=== PATIENT | female | born 1985 | race Caucasian/White ===

== ENCOUNTER 2017-01-14 16:40 | Emergency (ER) | payer SELFPAY ==
[2017-01-14 19:04] LABS: Hematocrit 37 % (35-47); Hemoglobin 12.5 g/dl (12.0-16.0); Mean Corpuscular HGB Conc 34 g/dl (31-36); Mean Corpuscular Hemoglobin 29 pg (27-31); Mean Corpuscular Volume 86 fL (80-97); Mean Platelet Volume 11 um3 (7.4-10.4); Red Blood Count 4.33 10^6/ul (4.0-5.4); Red Cell Distribution Width 13 % (10.5-15); White Blood Count 6.9 10^3/ul (3.5-10.8)
[2017-01-14 19:23] LABS: Albumin 4.5 g/dL (3.2-5.2); BUN/Creatinine Ratio 14.3 (8-20); C Reactive Protein 6.41 mg/L (< 5.00); Calcium 10.1 mg/dL (8.6-10.3); EGFR African American 141.7 (>60); EGFR Non-African American 110.2 (>60); Globulin 3.6 g/dL (2-4); Potassium 3.4 mmol/L (3.5-5.0); Total Bilirubin 0.3 mg/dL (0.2-1.0); Total Protein 8.1 g/dL (6.4-8.9)
[2017-01-14 20:11] LABS: TSH (Thyroid Stimulating Horm) 0.97 mcIU/mL (0.34-5.60)
--- NOTE | 2017-01-14 20:29 | RAD ---
INDICATION: Possible ectopic . COMPARISON: There are no prior studies available for comparison. TECHNIQUE: Multiple real-time transvaginal images of the pelvis were obtained. FINDINGS: This exam demonstrates an intrauterine gestational sac which is located eccentrically toward the right side of the fundus of the uterus. There appears to be myometrium surrounding this sac on all sides measuring up to 8 mm in thickness. Adjacent to the sac there is a fluid cavity most consistent with a subchorionic hematoma measuring 1.4 x 2.4 x 2.3 cm which may be the cause for the eccentric location of the sac. There is a pole and yolk sac present. The heart rate was 155 bpm. The crown-rump length measured 0.77 cm corresponding to an estimated gestational age of 6 weeks 5 days. The mean sac diameter measured 1.61 cm corresponding to an estimate gestational age of 6 weeks 3 days. The right ovary measured 3.7 x 2.4 x 2.3 cm. The left ovary measured 3.4 x 2.9 x 2.3 cm. There is vascular flow within both ovaries. There is a small complex cyst within the left ovary measuring 1.6 x 1.6 cm in size. No free intraperitoneal fluid is seen. IMPRESSION: THERE IS AN EARLY INTRAUTERINE WITH AN ESTIMATED GESTATIONAL AGE OF 6 WEEKS 5 DAYS BY CROWN-RUMP LENGTH. THERE IS AN ADJACENT FLUID COLLECTION MOST CONSISTENT WITH A SUBCHORIONIC HEMATOMA. THE GESTATIONAL SAC IS LOCATED ECCENTRICALLY IN THE UTERUS TOWARD THE RIGHT SIDE POSSIBLY FROM DISPLACEMENT BY THE SUBCHORIONIC HEMORRHAGE MUCH LESS LIKELY REPRESENTING AN INTERSTITIAL ECTOPIC . RECOMMEND CLINICAL CORRELATION AND A FOLLOW-UP TRANSVAGINAL ULTRASOUND IN 1 WEEKS TIME FOR FURTHER EVALUATION.
[2017-01-14 22:06] VITALS: BP 118/70
--- NOTE | 2017-01-14 22:20 | ED ---
Jeniffer Kwong Erika, scribed for Daryl Arcos MD on 01/14/17 at 2109 . GI/ HPI - HPI Summary HPI Summary: Patient is a 31-year-old female presenting to the ED for a transvaginal ultrasound. Patient reports that she was seen at the [facility] because she thought she was . They performed a non-diagnostic ultrasound , which showed that the gestational sac was more towards the right side. After she got home, they called her and recommended she come to the ED for an ultrasound. Patient denies any symptoms including vaginal bleeding or abdominal pain. [facility] 11/23/2016. A0 - both were vaginal deliveries. - History of Current Complaint Chief Complaint: EDOBProblems Time Seen by Provider: 01/14/17 19:42 Stated Complaint: R/O ECTOPIC Hx Obtained From: Patient, Family/Long Line Teamster - Onset/Duration: Started Hours Ago Timing: Constant Current Severity: None Pain Intensity: 0 Associated Signs and Symptoms: Positive: Negative. Negative: Abdominal Pain Additional Signs & Symptoms: Negative: Vaginal Bleeding Aggravating Factor(s): Nothing Alleviating Factor(s): Nothing - Allergy/Home Medications Allergies/Adverse Reactions: Allergies Allergy/AdvReac Type Severity Reaction Status Date / Time No Known Allergies Allergy Verified 01/14/17 16:59 PMH/Surg Hx/FS Hx/Imm Hx Endocrine/Hematology History: Denies: Hx Diabetes Cardiovascular History: Denies: Hx Hypertension - Surgical History Surgery Procedure, Year, and Place: appendectomy Infectious Disease History: No Infectious Disease History: Denies: Traveled Outside the [place] in Last 30 Days - Family History Known Family History: Positive: Diabetes, Other - multiple myeloma - Social History Lives: With Family Alcohol Use: None Hx Substance Use: No Substance Use Type: Reports: None Hx Tobacco Use: No Smoking Status (MU): Never Smoked Tobacco Review of Systems Negative: Fever Negative: Abdominal Pain Genitourinary: Other - Denies vaginal bleeding All Other Systems Reviewed And Are Negative: Yes Physical Exam Triage Information Reviewed: Yes Vital Signs On Initial Exam: Initial Vitals Temp Pulse Resp BP Pulse Ox 97.8 F 90 16 111/79 100 01/14/17 16:54 01/14/17 16:54 01/14/17 16:54 01/14/17 16:54 01/14/17 16:54 Vital Signs Reviewed: Yes Appearance: Positive: Well-Appearing, No Pain Distress Skin: Positive: Warm, Skin Color Reflects Adequate Perfusion, Dry Head/Face: Positive: Normal Head/Face Inspection Eyes: Positive: EOMI, MIYA ENT: Positive: Normal ENT inspection Neck: Positive: Supple, Nontender Respiratory/Lung Sounds: Positive: Clear to Auscultation, Breath Sounds Present Cardiovascular: Positive: RRR Abdomen Description: Positive: Nontender, Soft Bowel Sounds: Positive: Present Musculoskeletal: Positive: Normal, Strength/ROM Intact Neurological: Positive: Normal, Sensory/Motor Intact, Alert, Oriented to Person Place, Time Psychiatric: Positive: Affect/Mood Appropriate - Octavio Coma Scale Coma Scale Total: 15 Diagnostics - Vital Signs Vital Signs Temp Pulse Resp BP Pulse Ox 01/14/17 18:49 82 99 01/14/17 18:41 98.3 F 82 16 119/70 100 01/14/17 18:24 98.4 F 84 17 125/77 100 01/14/17 16:54 97.8 F 90 16 111/79 100 - Laboratory Lab Results: Lab Results 01/14/17 01/14/17 01/14/17 Range/Units 18:55 18:55 18:55 WBC 6.9 (3.5-10.8) 10^3/ul RBC 4.33 (4.0-5.4) 10^6/ul Hgb 12.5 (12.0-16.0) g/dl Hct 37 (35-47) % MCV 86 (80-97) fL MCH 29 (27-31) pg MCHC 34 (31-36) g/dl RDW 13 (10.5-15) % Plt Count 162 (150-450) 10^3/ul MPV 11 H (7.4-10.4) um3 Neut % (Auto) 67.1 (38-83) % Lymph % (Auto) 24.9 L (25-47) % [place] % (Auto) 7.1 (1-9) % Eos % (Auto) 0.5 (0-6) % Baso % (Auto) 0.4 (0-2) % Absolute Neuts (auto) 4.6 (1.5-7.7) 10^3/ul Absolute Lymphs (auto) 1.7 (1.0-4.8) 10^3/ul Absolute Monos (auto) 0.5 (0-0.8) 10^3/ul Absolute Eos (auto) 0 (0-0.6) 10^3/ul Absolute Basos (auto) 0 (0-0.2) 10^3/ul Absolute Nucleated RBC 0.01 10^3/ul Nucleated RBC % 0.2 INR (Anticoag Therapy) 0.98 (0.89-1.11) APTT 30.2 (26.0-36.3) seconds Sodium 135 (133-145) mmol/L Potassium 3.4 L (3.5-5.0) mmol/L Chloride 102 (101-111) mmol/L Carbon Dioxide 25 (22-32) mmol/L Anion Gap 8 (2-11) mmol/L BUN 9 (6-24) mg/dL Creatinine 0.63 (0.51-0.95) mg/dL Est GFR ( Amer) 141.7 (>60) Est GFR (Non-Af Amer) 110.2 (>60) BUN/Creatinine Ratio 14.3 (8-20) Glucose 93 (70-100) mg/dL Calcium 10.1 (8.6-10.3) mg/dL Total Bilirubin 0.30 (0.2-1.0) mg/dL AST 11 L (13-39) U/L ALT 9 (7-52) U/L Alkaline Phosphatase 61 (34-104) U/L C-Reactive Protein 6.41 H (< 5.00) mg/L Total Protein 8.1 (6.4-8.9) g/dL Albumin 4.5 (3.2-5.2) g/dL Globulin 3.6 (2-4) g/dL Albumin/Globulin Ratio 1.3 (1-3) TSH 0.97 (0.34-5.60) mcIU/mL Beta HCG, Quant 14633.00 mIU/mL Blood Type 01/14/17 Range/Units 18:55 WBC (3.5-10.8) 10^3/ul RBC (4.0-5.4) 10^6/ul Hgb (12.0-16.0) g/dl Hct (35-47) % MCV (80-97) fL MCH (27-31) pg MCHC (31-36) g/dl RDW (10.5-15) % Plt Count (150-450) 10^3/ul MPV (7.4-10.4) um3 Neut % (Auto) (38-83) % Lymph % (Auto) (25-47) % [place] % (Auto) (1-9) % Eos % (Auto) (0-6) % Baso % (Auto) (0-2) % Absolute Neuts (auto) (1.5-7.7) 10^3/ul Absolute Lymphs (auto) (1.0-4.8) 10^3/ul Absolute Monos (auto) (0-0.8) 10^3/ul Absolute Eos (auto) (0-0.6) 10^3/ul Absolute Basos (auto) (0-0.2) 10^3/ul Absolute Nucleated RBC 10^3/ul Nucleated RBC % INR (Anticoag Therapy) (0.89-1.11) APTT (26.0-36.3) seconds Sodium (133-145) mmol/L Potassium (3.5-5.0) mmol/L Chloride (101-111) mmol/L Carbon Dioxide (22-32) mmol/L Anion Gap (2-11) mmol/L BUN (6-24) mg/dL Creatinine (0.51-0.95) mg/dL Est GFR ( Amer) (>60) Est GFR (Non-Af Amer) (>60) BUN/Creatinine Ratio (8-20) Glucose (70-100) mg/dL Calcium (8.6-10.3) mg/dL Total Bilirubin (0.2-1.0) mg/dL AST (13-39) U/L ALT (7-52) U/L Alkaline Phosphatase (34-104) U/L C-Reactive Protein (< 5.00) mg/L Total Protein (6.4-8.9) g/dL Albumin (3.2-5.2) g/dL Globulin (2-4) g/dL Albumin/Globulin Ratio (1-3) TSH (0.34-5.60) mcIU/mL Beta HCG, Quant mIU/mL Blood Type O Positive Result Diagrams: 01/14/17 18:55 04/26/17 18:55 Lab Statement: Any lab studies that have been ordered have been reviewed, and results considered in the medical decision making process. - Ultrasound No standard instances Ultrasound Interpretation Completed By: Radiologist - Transvaginal US - IMPRESSION: THERE IS AN EARLY INTRAUTERINE WITH AN ESTIMATED GESTATIONAL AGE OF 6 WEEKS 5 DAYS BY CROWN-RUMP LENGTH. THERE IS AN ADJACENT FLUID COLLECTION MOST CONSISTENT WITH A SUBCHORIONIC HEMATOMA. THE GESTATIONAL SAC IS LOCATED ECCENTRICALLY IN THE UTERUS TOWARD THE RIGHT SIDE POSSIBLY FROM DISPLACEMENT BY THE SUBCHORIONIC HEMORRHAGE MUCH LESS LIKELY REPRESENTING AN INTERSTITIAL ECTOPIC . RECOMMEND CLINICAL CORRELATION AND A FOLLOW-UP TRANSVAGINAL ULTRASOUND IN 1 WEEKS TIME FOR FURTHER EVALUATION. Re-Evaluation - Re-Evaluation First Eval Re-Evaluation Time: 21:59 Comment: Discussed Dr. Scott's recommendations with patient GIGU Course/Dx - Course Course Of Treatment: NO CRITICAL CARE TIME Assessment/Plan: DISCUSSED RESULTS WITH PATIENT/FAMILY AND DR SCOTT. THE POSSIBILITY OF INTERSITIAL ECTOPIC PRGNANCY EXISTS. IT IS NOT CONSIDERED AN INTERSITIAL ECTOPIC AT THIS TIME. F/U WITH DR SCOTT TOMORROW. DISCHARGE HOME STABLE. PATIENT UNDERSTANDS TO RETURN TO THE ED WITH ANY CONCERNS. - Diagnoses Provider Diagnoses: - Physician Notifications Discussed Care Of Patient With: Dr. Scott (OB-Plug Assembler) at 21:12 - discussed case and ultrasound results. Discharge - Discharge Plan Condition: Stable Disposition: HOME Patient Education Materials: Ectopic (ED), (ED) Referrals: No Primary Care Phys,NOPCP [Primary Care Provider] - Stacy Scott MD [Medical Doctor] - Additional Instructions: FOLLOW UP WITH DR SCOTT, [facility]. CALL HIS OFFICE TOMORROW, 01/15/17 FOR FOLLOW UP FOR A REPEAT ULTRASOUND IN ONE WEEK. BECAUSE OF THE LOCATION OF THE [facility], THERE IS A POTENTIAL FOR AN INTERSTITIAL ECTOPIC . THE MUST BE FOLLOWED VERY CLOSELY BECAUSE OF THIS. RETURN TO THE EMERGENCY DEPARTMENT FOR ANY WORSENING OF YOUR CONDITION; PAIN, WEAKNESS, YOU FEEL ILL, YOU FEEL LIGHTHEADED, VAGINAL BLEEDING OR QUESTIONS OR CONCERNS. The documentation as recorded by the Jeniffer rizzo Erika accurately reflects the service I personally performed and the decisions made by me, Daryl Arcos MD.
== END 2017-01-14 22:06 | disposition home or self-care (01) ==
LOC: ED 16:40
DX: Z34.91 Encounter for supervision of normal pregnancy, unspecified, first trimester (principal)
CPT/HCPCS: 36415; 76817; 80053; 84443; 84702; 85025; 85610; 85730; 86140; 86900; 86901; 99283

== ENCOUNTER 2017-09-01 05:09 | Inpatient (IN) | payer BC ==
[2017-09-01 06:20] LABS: Hematocrit 35 % (35-47); Mean Corpuscular HGB Conc 34 g/dl (31-36); Mean Corpuscular Hemoglobin 31 pg (27-31); Mean Corpuscular Volume 90 fL (80-97); Mean Platelet Volume 11 um3 (7.4-10.4); Red Blood Count 3.92 10^6/ul (4.0-5.4); Red Cell Distribution Width 13 % (10.5-15); White Blood Count 7.5 10^3/ul (3.5-10.8)
[2017-09-01 06:30] LABS: Comments Flag Yes
[2017-09-01 06:31] LABS: Add Diff/Slide Review? Slide Review Added
[2017-09-01] MEDS ORDERED: OBEPIDURAL* 250 ML EPIDURAL ONE (06:45)
[2017-09-01] MEDS ORDERED: Famotidine TAB* 20 MG PO PRN (07:11)
[2017-09-01] MEDS ORDERED: EPHEDrine (Pressors)* 50 MG/ML VIAL IV PUSH PRN ×2 (07:11)
[2017-09-01] MEDS ORDERED: Sodium Citrate/Citric Acid* 15 ML UDC PO PRN (07:11)
[2017-09-01] MEDS ORDERED: Phenylephrine IV* 40 MCG/ML 10 ML SYRINGE IV PUSH PRN ×2 (07:11)
[2017-09-01] MEDS ORDERED: OBEPIDURAL* 250 ML EPIDURAL SCH (08:00)
[2017-09-01] MEDS ORDERED: Misoprostol TAB* 200 MCG PR ONE (10:10)
[2017-09-01] MEDS ORDERED: Dibucaine 1% 28.35 GM TUBE PR PRN (10:10)
[2017-09-01] MEDS ORDERED: Glycerin ADULT SUPP PR PRN (10:10)
[2017-09-01] MEDS ORDERED: Witch Hazel PAD* JAR TOPICAL PRN (10:10)
[2017-09-01] MEDS ORDERED: Oxytocin in LR* 20 UNITS/1,000 ML BAG IVPB SCH (11:00)
[2017-09-01] MEDS ORDERED: Simethicone TAB* 80 MG TAB.CHEW PO SCH (12:30)
[2017-09-01] MEDS: Ibuprofen TAB* 600 MG PO PRN ×2 (12:50→20:10)
[2017-09-01] MEDS: Docusate CAP* 100 MG PO SCH ×2 (15:01→21:07)
[2017-09-01 15:50] LABS: Hematocrit 31 % (35-47); Hemoglobin 10.3 g/dl (12.0-16.0)
[2017-09-01] MEDS: Acetaminophen TAB* 325 MG PO PRN ×2 (17:09→21:58)
[2017-09-02] MEDS: Ibuprofen TAB* 600 MG PO PRN ×4 (03:03→20:54)
[2017-09-02 07:25] VITALS: BP 111/70
[2017-09-02 07:26] LABS: Hematocrit 28 % (35-47); Hemoglobin 9.7 g/dl (12.0-16.0); Mean Corpuscular HGB Conc 34 g/dl (31-36); Mean Corpuscular Hemoglobin 31 pg (27-31); Mean Corpuscular Volume 90 fL (80-97); Mean Platelet Volume 12 um3 (7.4-10.4); Red Blood Count 3.14 10^6/ul (4.0-5.4); Red Cell Distribution Width 14 % (10.5-15); White Blood Count 10.5 10^3/ul (3.5-10.8)
[2017-09-02] MEDS: Docusate CAP* 100 MG PO SCH ×3 (09:30→20:54)
[2017-09-02] MEDS: Ferrous Gluconate TAB* 324 MG TAB PO SCH ×2 (09:30→20:54)
[2017-09-04 14:41] LABS: Varicella IgG Antibody Index <0.2; Varicella-Zoster IgG Antibody Negative
== END 2017-09-02 19:30 | disposition home or self-care (01) | DRG 560 ==
LOC: MCHOBOUT 05:09 → MCHOB 05:33
PROVIDERS: ADMIT Midwife; ATTEND Midwife
PROC: 10E0XZZ Delivery of Products of Conception, External Approach (ICD-10-PCS; principal; 2017-09-01)
PROC: 0HQ9XZZ Repair Perineum Skin, External Approach (ICD-10-PCS; 2017-09-01)
DX: O48.0 Post-term pregnancy (principal); O43.123 Velamentous insertion of umbilical cord, third trimester; O70.0 First degree perineal laceration during delivery; Z3A.40 40 weeks gestation of pregnancy; Z37.0 Single live birth
CPT/HCPCS: 36415; 85014; 85018; 85025; 86787; 86850; 86900; 86901; A9270-GY

== ENCOUNTER 2018-08-10 09:00 | Emergency (ER) | payer BC ==
--- OUTSIDE RECORDS SUMMARY | 2018-08-10 09:08 | XMS REPORT | Continuity of Care Document ---
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 Payers Type Date Identification Numbers Payment Provider Subscriber Effective: Policy Number: [employer] CHARLINE/BS Alexandra Rodriguez 2017 [id number] [facility] PayID: [id number] [address] [address] [place] [address] Advance Directives Description No Information Available Problems Date Description Provider Status Onset: 12/28/2017 IUD contraception Kisha Rucker CNM Active Onset: 06/24/2017 Multigravida Kisha Rucker CNM Resolved Resolved: 12/28/2017 Family History Date Family Member(s) Problem(s) Comments Father A&W Mother Diabetes Mother multiple myloma Children 3 First Son A&W First Daughter A&W Second Daughter Congenital Nasal Pyriform Expectant management for now Apparatus Stenosis (may require surgery at some point) Siblings 4 First Brother A&W Second Brother Glucose 6 phosphate dehydrogenase deficiency First Sister A&W Second Sister A&W Paternal Grandfather due to Unknown Causes () Paternal Grandmother due to Unknown Causes () Maternal Grandfather due to Unknown Causes () Maternal Grandmother Diabetes Social History Type Date Description Comments Sex Unknown Education Highest level completed, Doctorate Marital Status Lives With Spouse Lives With Son Lives 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 Daughters 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 Tobacco Use Start: Unknown Never Smoked Cigarettes ETOH Use Denies alcohol use Recreational Drug Use Denies Drug Use Tobacco Use Start: Unknown Patient has never smoked Smoking Status Reviewed: 02/04/18 Patient has never smoked Exercise Type/Frequency Does not exercise Seat Belt/Car Seat Always uses seat belt Currently Active Patient is currently sexually active Contraceptive Methods Paragard IUD STD's No STD History Allergies, Adverse Reactions, Alerts Description No Known Drug Allergies Medications Medication Date Status Form Strength Qnty SIG Indications Ordering Provider Paragard Active IUD T380a placed Mahrie Intrauterine 018 12/28/2017 KIRSTIN Rucker Copper Contraceptive T380a Folic Acid Active Unknown 000 Flagyl Hx Tablets 500mg 14tabs one Nevin 018 - tablet Minoo, by LM 018 mouth, twice a day x 7 days Provera Hx Tablets 10mg 10tabs take one Nevin 018 - tablet Minoo, by mouth LM 018 for 10 days. Clotrimazole Hx Cream 1% 15gm apply to N64.51 Richard Murray 017 - area Gelber, twice a M.D. 018 day x14 days Ferrous Hx Tablets 324(37.5Fe) 30tabs 1 by Mahrie Gluconate 017 - mg mouth KIRSTIN Rucker every 018 other day Promethazine HCL Hx Tablets 25mg 30tabs take one Desirae 017 - tablet Avery, by mouth CNM 018 every 6 hours as needed for nausea Ranitidine HCL Hx Tablets 150mg 30tabs tab 1 by Desirae 017 - mouth Avery, twice a CNM 018 day as needed for acid reflux Medications Administered in Office Medication Date Status Form Strength Qnty SIG Indications Ordering Provider PT SCRN Tbco Administered Injection Mahrie Id as Non User 018 KIRSTIN Rucker PT SCRN Tbco Administered Injection Nevin Id as Non User 018 MICHELLE Hennessy Immunizations CPT Code Status Date Vaccine Lot # [id number] Given 06/24/2017 Tetnus, Diptheria Toxoids And Acellular Pertussis, [id number] PT > 7Yrs Old 04806 Given 06/24/2017 Influenza Vaccine Quadrivalent Preser/Antibiotic [id number] Free Im Use Vital Signs Date Vital Result Comment 08/09/2018 1:19pm BP Systolic 112 mmHg BP Diastolic 76 mmHg Body Temperature 98.1 F Height 65.0 inches 5'5" Weight 163.00 lb BMI (Body Mass Index) 27.1 kg/m2 3 Parity 3 02/04/2018 1:37pm BP Systolic 102 mmHg BP Diastolic 64 mmHg Height 65.0 inches 5'5" Weight 156.00 lb BMI (Body Mass Index) 26.0 kg/m2 Last Menstrual Period 1200863 3 Parity 3 01/19/2018 1:05pm BP Systolic 118 mmHg BP Diastolic 64 mmHg Height 65.0 inches 5'5" Weight 161.00 lb BMI (Body Mass Index) 26.8 kg/m2 Last Menstrual Period 9419952 3 Parity 3 12/28/2017 1:32pm BP Systolic 106 mmHg BP Diastolic 60 mmHg Height 65.0 inches 5'5" Weight 165.00 lb BMI (Body Mass Index) 27.5 kg/m2 Last Menstrual Period 4814913 3 Parity 3 11/11/2017 1:24pm BP Systolic 104 mmHg BP Diastolic 62 mmHg Height 65.0 inches 5'5" Weight 158.00 lb BMI (Body Mass Index) 26.3 kg/m2 Last Menstrual Period 2136624 3 Parity 3 02/11/2017 1:38pm BP Systolic 108 mmHg BP Diastolic 64 mmHg Height 65.0 inches 5'5" Weight 151.00 lb BMI (Body Mass Index) 25.1 kg/m2 Last Menstrual Period 0494939 3 Parity 2 01/21/2017 9:24am BP Systolic 120 mmHg BP Diastolic 72 mmHg Height 65.0 inches 5'5" Weight 150.00 lb BMI (Body Mass Index) 25.0 kg/m2 Last Menstrual Period 6930384 3 Parity 2 01/14/2017 12:00am BP Systolic 118 mmHg BP Diastolic 70 mmHg Body Temperature 98.3 F Heart Rate 82 /min Respiratory Rate 16 /min Height 64.96 inches Weight 147.69 lb BMI (Body Mass Index) 24.6 kg/m2 Results Test Date Facility Test Result H/L Range Note Laboratory test 08/09/2018 [facility] Gardnerella/Yeas <pending > [place] [address] t: Vaginal Dna [phone] Laboratory test 01/19/2018 [facility] Culture Genital SEE RESULT [address] [place] [address] & Sensitivity BELOW [phone] CBC With No Diff 01/19/2018 [facility] White Blood 5.0 10^3/uL 3.5-10.8 [place] [address] Count [phone] Red Blood Count 4.42 10^6/uL 4.0-5.4 Hemoglobin 13.0 g/dL 12.0-16.0 Hematocrit 38 % 35-47 Mean Corpuscular Volume 86 fL 80-97 Mean Corpuscular Hemoglobin 29 pg 27-31 Mean Corpuscular HGB Conc 34 g/dL 31-36 Red Cell Distribution Width 14 % 10.5-15 Platelet Count 156 10^3/uL 150-450 Mean Platelet Volume 11.1 um3 High 7.4-10.4 Laboratory test 08/04/2017 [facility] Group B Strep SEE RESULT 2, 3 [place] [address] Culture Screen BELOW [phone] Laboratory test 2017 [facility] Glucose 1 HR 123 mg/dL 70-16 4 [place] [address] Post Prandial 0 [phone] CBC With No Diff 2017 [facility] White Blood 6.5 10^3/uL 3.5-1 [place] [address] Count 0.8 [phone] Red Blood Count 3.50 10^6/uL Low 4.0-5.4 Hemoglobin 10.7 g/dL Low 12.0-16.0 Hematocrit 32 % Low 35-47 Mean Corpuscular Volume 91 fL 80-97 Mean Corpuscular Hemoglobin 31 pg 27-31 Mean Corpuscular HGB Conc 34 g/dL 31-36 Red Cell Distribution Width 14 % 10.5-15 Platelet Count 112 10^3/uL Low 150-450 Mean Platelet Volume 12 um3 High 7.4-10.4 Sequential Integreated SCRN 2 PR 03/12/2017 [facility] Interpretation SEE BELOW 5 Risk For Ontd <1:5000 Age Risk Down Syndrome 1:560 JAY Down Syndrome Risk 1:4800 <1:270 JAY Trisomy 18 Risk <1:5000 <1:100 Calculated Gestational Age 15.3 6 Afp,Serum 19.4 ng/mL Afp Mom 0.66 7 HCG,Serum 47.0 IU/mL HCG Mom 1.03 Estriol,Free 0.48 ng/mL Estriol Mom 0.69 Inhibin A,Dimeric 202 pg/mL Inhibin A Mom 1.13 Lalita-A 604.4 ng/mL 8 Lalita-A Mom 1.01 NT Mom 0.94 9 Referring Physician Name JANAE/BELEN OKEEFE <SEE NOTE> 10 Referring Physician Referring Physician BELEN BlackwoodORA 13 <SEE NOTE> 11 Specimen # From Part 1 [id number] Date Of 1985 Collection Date 03/12/2017 Maternal Weight 151 lbs Est'd Date Of Delivery 08/30/2017 Nuchal Translucency 1.1 mm [place] Rump Length 46 mm Ultrasound Date 02/11/2017 Nasal Bone NOT GIVEN Mother's Ethnic Origin OTHER Insulin Depend Diabetic N Repeat Specimen N Number Of Fetuses 1 HX Of Neural Tube Defects N Twin B Nasal Bone NG 12 GC/Chlamydia Dna 02/20/2017 [facility] Chlamydia [place] [address] trachomatis Rna [phone] Neisseria gonorrhoeae (GC) Rna Negative Negative Urine Culture And 02/11/2017 [facility] Urine SEE RESULT 13 [place] [address] Culture BELOW [phone] HIV 1/2 Ag & AB 02/11/2017 [facility] HIV-1/-2 Negative Negative 14 [place] [address] Screen, S [phone] Lead 02/11/2017 [facility] Lead <1.0 g/dL 0.0-4.9 15 [place] [address] [phone] Type And Screen 02/11/2017 [facility] [place] [address] Blood Type [phone] Antibody Screen NEGATIVE CBC With No 02/11/2017 [facility] White Blood 6.8 10^3/uL 3.5 -10.8 [place] [address] Count [phone] Red Blood Count 4.18 10^6/uL 4.0-5.4 Hemoglobin 12.2 g/dL 12.0-16.0 Hematocrit 38 % 35-47 Mean Corpuscular Volume 90 fL 80-97 Mean Corpuscular Hemoglobin 29 pg 27-31 Mean Corpuscular HGB Conc 33 g/dL 31-36 Red Cell Distribution Width 14 % 10.5-15 Platelet Count 152 10^3/uL 150-450 Mean Platelet Volume 13 um3 High 7.4-10.4 PNL No 02/11/2017 [facility] Rubella Screen Immune IU/ mL Immune 16 [place] [address] [phone] Hemoglobin A1c 5.0 % Less than 6.0 17 Hepatitis B Surface Ag Nonreactive Nonreactive 18 Syphillis Igg W/Reflex RPR Nonreactive Nonreactive 19 Sequential Integrated SCRN 1 [place] 02/11/2017 [facility] Interpretation SEE BELOW 20 Age Risk Down Syndrome 1:420 JAY Down Syndrome Risk IN PROCESS <1:50 JAY Trisomy 18 Risk IN PROCESS <1:100 Calculated Gestational Age 11.1 21 Lalita-A 604.4 ng/mL 22 Lalita-A Mom 1.01 HCG,Serum 99.1 IU/mL HCG Mom 0.84 NT Mom 0.94 23 Referring Physician Name JANAE 24 Referring Physician 25 Referring Physician Npi [id number] Date Of 1985 27 Collection Date 02/11/2017 28 Maternal Weight 151 lbs 29 Est'd Date Of Delivery 08/30/2017 30 LAZARUS Determined By U 31 Mother's Ethnic Origin OTHER 32 Number Of Fetuses 1 33 Insulin Depend Diabetic N 34 Repeat Specimen N 35 HX Of Neural Tube Defects N 36 Prev Down Synd N 37 Donor Egg N 38 Donor Age:Egg Retrieval NOT GIVEN 39 Ultrasound Date 02/11/2017 40 Betting Agency Manager's Name VICTORINO 41 NTQR Betting Agency Manager Id# [id number] NTQR Location Id# [id number] NTQR Reading Phys Id# [id number] FMF Betting Agency Manager Id# NOT GIVEN 45 [place] Rump Length 46 mm 46 Nuchal Translucency 1.1 mm 47 Nasal Bone NOT GIVEN 48 If Twins NOT GIVEN 49 Twin B CRL NG mm 50 Twin B NT NG mm 51 Twin B Nasal Bone NG 52 Laboratory Studies 01/14/2017 N2N/CCD Import Absolute Basophils 0 10^3/ul 0-0.2 (auto) Absolute Eosinophils (auto) 0 10^3/ul 0-0.6 Absolute Lymphocytes (auto) 1.7 10^3/ul 1.0-4.8 Absolute Monocytes (auto) 0.5 10^3/ul 0-0.8 Absolute Neutrophils (auto) 4.6 10^3/ul 1.5-7.7 Activated Partial Thromboplast Time 30.2 seconds 26.0-36.3 Alanine Aminotransferase (Alt/SGPT) 9 U/L 7-52 Albumin 4.5 g/dL 3.2-5.2 Albumin/Globulin Ratio 1.3 1-3 Alkaline Phosphatase 61 U/L 34-104 Anion Gap 8 mmol/L 2-11 Aspartate Amino Transf (Ast/Sgot) 11 U/L Low 13-39 BUN/Creatinine Ratio 14.3 8-20 Basophils (%) (Auto) 0.4 % 0-2 Beta HCG, Quantitative 90910.00 mIU/mL Blood Urea Nitrogen 9 mg/dL 6-24 C-Reactive Protein 6.41 mg/L High 0-5.00 Calcium Level 10.1 mg/dL 8.6-10.3 Carbon Dioxide Level 25 mmol/L 22-32 Chloride Level 102 mmol/L 101-111 Creatinine 0.63 mg/dL 0.51-0.95 Eosinophils (%) (Auto) 0.5 % 0-6 Estimated GFR () 141.7 Estimated GFR (Non- 110.2 Globulin 3.6 g/dL 2-4 Glucose Level 93 mg/dL 70-100 Hematocrit 37 % 35-47 Hemoglobin 12.5 g/dL 12.0-16.0 International Ratio (Anticoag Ther) 0.98 0.89-1.11 Lymphocytes (%) (Auto) 24.9 % Low 25-47 Mean Corpuscular Hemoglobin 29 pg 27-31 Mean Corpuscular Hemoglobin Concent 34 g/dL 31-36 Mean Corpuscular Volume 86 fL 80-97 Mean Platelet Volume 11 um3 High 7.4-10.4 Monocytes (%) (Auto) 7.1 % 1-9 Neutrophils (%) (Auto) 67.1 % 38-83 Nucleated RBC Absolute Count (auto) 0.01 10^3/ul Nucleated Red Blood Cells % 0.2 Platelet Count 162 10^3/ul 150-450 Potassium Level 3.4 mmol/L Low 3.5-5.0 Red Blood Count 4.33 10^6/ul 4.0-5.4 Red Cell Distribution Width 13 % 10.5-15 Sodium Level 135 mmol/L 133-145 Thyroid Stimulating Hormone (TSH) 0.97 mcIU/mL 0.34-5.60 Total Bilirubin 0.30 mg/dL 0.2-1.0 Total Protein 8.1 g/dL 6.4-8.9 White Blood Count 6.9 10^3/ul 3.5-10.8 1 SEE RESULT BELOW Name: ALEXANDRA KINNEY : [address]: Nevin Hennessy CM Acct: [id number] Unit: [id number] AGE: 32 Location: [facility] Re01/19/18 SEX: F Status: REG REF SPEC: [id number] ANJELICA: 01/19/18-1418 [facility] DR: Nevin Hennessy CM REQ: [id number] RECD: 01/19/18 STATUS: COMP _ SOURCE: VAGINAL SPDESC: ORDERED: Genital Culture COMMENTS: [id number] Procedure Result Reported Site Genital Culture Final 01/22/18- 1324 ML Organism 1 SHAMIR VAGINALIS-PRESUMPTIVE Quantity 2+ Organism 2 NORMAL YOKO Quantity 1+ * ML - Main Lab . END OF REPORT DEPARTMENT OF PATHOLOGY, [address] [place] [address] Anselmo Mathias M.D. Director [facility] # [id number] 2 [id number] SEE RESULT BELOW Name: ALEXANDRA KINNEY : [address]: Suzi Jean Baptiste MD Acct: [id number] Unit: [id number] AGE: 32 Location: [facility] Re08/04/17 SEX: F Status: REG REF SPEC: [id number] ANJELICA: 08/04/17 [facility] DR: Suzi Jean Baptiste MD REQ: [id number] RECD: 08/04/17 STATUS: COMP _ SOURCE: CER/VAG/RE SPDESC: ORDERED: Grp B Strp Scrn COMMENTS: [id number] QUERIES: Is Patient Penicillin Allergic? N Is patient penicillin allergic and/or sensitivities needed? N Provider Requisition # C77#[id number] Procedure Result Reported Site Group B Strep Culture Screen Final 08/06/17- 1208 ML Group B Strep Screen Negative * ML - MAIN LAB ([facility]) . END OF REPORT * ML=Testing performed at Main Lab DEPARTMENT OF PATHOLOGY, [address] [place] [address] Anselmo Mathias M.D. Director [facility] # [id number] 4 [id number] SCREEN NEGATIVE FOR OPEN NTD, DOWN SYNDROME AND TRISOMY 18. NT WAS USED IN THE RISK CALCULATIONS. 6 [place] rump length (CRL) was used to calculate gestational age. LAZARUS, if provided, was not used for gestational age dating. 7 Reference Range: <2.50 IDD <1.90 TWINS <4.00 TWINS IDD <3.50 TRIPLETS <4.50 8 This test was performed using a kit that has not been cleared or approved by the FDA. The analytical performance characteristics of this test have been determined by [facility]. This test should not be used for diagnosis without confirmation by other medically established means. 9 The Sequential Integrated Screen combines LALITA-A and hCG with or without a nuchal translucency measurement in the first trimester with AFP, unconjugated estriol, intact hCG and Inhibin A in the second trimester. This provides a useful screening test for detection of open neural tube defects, Down syndrome and Trisomy 18. It should be noted that normal results can never guarantee the of a normal baby and that 2 to 3 percent of newborns have some type of physical or mental defect, many of which are undetectable through any known diagnostic technique. Interpretation reviewed by: Carmenza Helms, Ph.D., [facility]. This is a screening test, not a diagnostic test. This risk assessment is based on demographic data provided by the ordering physician. Please notify the laboratory promptly if any data are incorrect. If you have questions concerning this report: For clinical consultation, call ; For technical questions, call ext [phone]; For recalculations, fax to [phone]. 10 JANAE/OVIDIO OKEEFE 11 OVIDIO OKEEFE [id number] 12 For additional information, please refer to http://education.Playrcart.[email or web address] Engine/faq/FAQ94 (This link is provided for informational/educational purposes only.) 13 SEE RESULT BELOW Name: ALEXANDRA RODRIGUEZ : [address]: Manny Choi [facility] Acct: [id number] Unit: [id number] AGE: 31 Location: [facility] Re02/11/17 SEX: F Status: REG REF SPEC: [id number] ANJELICA: 02/11/17-[address]: Manny Choi [facility] REQ: [id number] RECD: 02/11/17 STATUS: COMP _ SOURCE: URINE SPDESC: ORDERED: Urine Culture COMMENTS: [id number] Procedure Result Reported Site Urine Culture Final 02/13/17- 923 ML No Growth (<1,000 CFU/mL) * ML - MAIN LAB ([facility]) . END OF REPORT * ML=Testing performed at Main Lab DEPARTMENT OF PATHOLOGY, [address] [place] [address] nAselmo Mathias M.D. Director [facility] # [id number] 14 Negative result does not rule out HIV infection. If acute HIV infection is suspected in a high-risk individual, submit plasma specimen for HIV-1 RNA quantification test (HIVDQ) and/or HIV-2 DNA/RNA test (FHV2Q). Test Performed by: [address] [address] 15 ADDITIONAL INFORMATION Testing performed by Inductively Coupled Plasma-Mass Spectrometry (ICP-MS). This test was developed and its performance characteristics determined by [facility] in a manner consistent with CLIA requirements. This test has not been cleared or approved by the U.S. Food and Drug Administration. 16 [id number] 17 Therapeutic target for the treatment of diabetes Mellitus patients is <7% HBA1C, and in selective patients <6.0%.Please refer to [place] [employer] Diabetic care guidelines for further information. 18 [id number] 19 Warning: A positive result is not useful for establishing a diagnosis of syphilis. In most situations, such a result may reflect a prior treated infection; a negative result can exclude a diagnosis of syphilis except for incubating or early primary disease. 20 This patient's risk does not exceed the first trimester cut-off for Down syndrome or trisomy 18. The integrated screen calculation is awaiting the second trimester sample. NT WAS USED IN THE RISK CALCULATIONS. Thank you for submitting this patient's Part 1 specimen. These first trimester values will be incorporated with the second trimester values as part of the integrated testing process. Please submit the Part 2 specimen between 03/10/2017-05/04/2017 (15.0 and 22.9 weeks gestation) with 03/10/2017-03/23/2017 (15.0 - 16.9 weeks gestation) being optimal. When submitting Part 2, please include the following Specimen # from Part 1: [id number] 21 [place] rump length (CRL) was used to calculate gestational age. LAZARUS, if provided, was not used for gestational age dating. 22 This test was performed using a kit that has not been cleared or approved by the FDA. The analytical performance characteristics of this test have been determined by [facility]. This test should not be used for diagnosis without confirmation by other medically established means. 23 Interpretation reviewed by: Carmenza Helms, Ph.D., [facility]. This is a screening test, not a diagnostic test. This risk assessment is based on demographic data provided by the ordering physician. Please notify the laboratory promptly if any data are incorrect. If you have questions concerning this report: For clinical consultation, call ; For technical questions, call ext [phone]; For recalculations, fax to . For additional information, please refer to http://AppSlingr.Playrcart.Compass Engine/faq/FAQ89 (This link is being provided for informational/educational purposes only.) 24 For additional information, please refer to http://AppSlingr.Playrcart.Compass Engine/faq/FAQ89 (This link is being provided for informational/educational purposes only.) 25 For additional information, please refer to http://AppSlingr.Playrcart.Compass Engine/faq/FAQ89 (This link is being provided for informational/educational purposes only.) 26 For additional information, please refer to http://AppSlingr.Playrcart.Compass Engine/faq/FAQ89 (This link is being provided for informational/educational purposes only.) 27 For additional information, please refer to http://AppSlingr.Playrcart.Compass Engine/faq/FAQ89 (This link is being provided for informational/educational purposes only.) 28 For additional information, please refer to http://Stream Media/faq/FAQ89 (This link is being provided for informational/educational purposes only.) 29 For additional information, please refer to http://Stream Media/faq/FAQ89 (This link is being provided for informational/educational purposes only.) 30 For additional information, please refer to http://Stream Media/faq/FAQ89 (This link is being provided for informational/educational purposes only.) 31 For additional information, please refer to http://Stream Media/faq/FAQ89 (This link is being provided for informational/educational purposes only.) 32 [place] For additional information, please refer to http://Stream Media/faq/FAQ89 (This link is being provided for informational/educational purposes only.) 33 For additional information, please refer to http://Stream Media/faq/FAQ89 (This link is being provided for informational/educational purposes only.) 34 For additional information, please refer to http://Stream Media/faq/FAQ89 (This link is being provided for informational/educational purposes only.) 35 For additional information, please refer to http://Stream Media/faq/FAQ89 (This link is being provided for informational/educational purposes only.) 36 For additional information, please refer to http://Stream Media/faq/FAQ89 (This link is being provided for informational/educational purposes only.) 37 For additional information, please refer to http://Stream Media/faq/FAQ89 (This link is being provided for informational/educational purposes only.) 38 For additional information, please refer to http://Stream Media/faq/FAQ89 (This link is being provided for informational/educational purposes only.) 39 For additional information, please refer to http://Stream Media/faq/FAQ89 (This link is being provided for informational/educational purposes only.) 40 For additional information, please refer to http://Stream Media/faq/FAQ89 (This link is being provided for informational/educational purposes only.) 41 For additional information, please refer to Yanado://Stream Media/faq/FAQ89 (This link is being provided for informational/educational purposes only.) 42 For additional information, please refer to http://Stream Media/faq/FAQ89 (This link is being provided for informational/educational purposes only.) 43 For additional information, please refer to http://Stream Media/faq/FAQ89 (This link is being provided for informational/educational purposes only.) 44 For additional information, please refer to http://Stream Media/faq/FAQ89 (This link is being provided for informational/educational purposes only.) 45 For additional information, please refer to http://Stream Media/faq/FAQ89 (This link is being provided for informational/educational purposes only.) 46 For additional information, please refer to http://Stream Media/faq/FAQ89 (This link is being provided for informational/educational purposes only.) 47 For additional information, please refer to http://Stream Media/faq/FAQ89 (This link is being provided for informational/educational purposes only.) 48 For additional information, please refer to http://Stream Media/faq/FAQ89 (This link is being provided for informational/educational purposes only.) 49 For additional information, please refer to http://Stream Media/faq/FAQ89 (This link is being provided for informational/educational purposes only.) 50 For additional information, please refer to http://Stream Media/faq/FAQ89 (This link is being provided for informational/educational purposes only.) 51 For additional information, please refer to http://Stream Media/faq/FAQ89 (This link is being provided for informational/educational purposes only.) 52 For additional information, please refer to http://education.365Scores/faq/FAQ89 (This link is being provided for informational/educational purposes only.) Procedures Date Code Description Status 01/19/2018 02582 Echography Transvaginal Completed 12/28/2017 34148 Insert Intrauterine Device Completed 09/01/2017 33266 Obstetric Care Routine Completed 07/17/2017 14909 Biophysical Profile Without Non Stress Test Completed 07/17/2017 86895 Echography Uterus Follow-Up Or Repeat Completed 05/06/2017 86707 Echography Uterus Limited Completed 04/08/2017 86730 Echography Uterus Complete Completed 02/11/2017 12760 Nuchal Translucency Ultrasound /First Completed Gestation 01/21/2017 26629 OB Ultrasound First Trimester Completed 01/20/2016 [id number] Mammogram Completed Encounters Type Date Location Provider Dx Diagnosis Office Visit 08/09/2018 [facility] Manny Choi CNM N39.0 Urinary tract 1:40p infection, site not specified N93.9 Abnormal uterine and vaginal bleeding, unspecified Office Visit 02/04/2018 1:40p [facility] Office Kisha Rucker Z30.431 Encounter for ALEXM routine checking of intrauterine contracep dev Office Visit 01/19/2018 1:00p [facility] Nevin Z30.431 Encounter for MICHELLE Hennessy routine checking of intrauterine contracep dev Office Visit 07/15/2017 11:20a [facility] Richard Murray N64.51 Induration of Tiana Norman breast Office Visit 01/21/2017 9:00a [facility] Kate Ho, O26.91 related ANP-C conditions, unspecified, first trimester Plan of Treatment 08/09/2018 - Manny Choi CNMN39.0 Urinary tract infection, site not specifiedComments:Will start abx based on micro and follow up based on [id number] Abnormal uterine and vaginal bleeding, unspecifiedComments:As discussed, we will check for infections and treat if found. I'm unsure as to the cause of your daily spotting. An option may be to remove IUD and reinsert later or consider a course of hormones to suppress cycle for a few months. Call for either option.
[2018-08-10] MEDS ORDERED: Ondansetron ODT TAB* 4 MG PO ONE (09:51)
[2018-08-10] MEDS: Ibuprofen TAB* 600 MG PO ONE ×2 (09:58→10:05)
--- NOTE | 2018-08-10 10:30 | UC ---
Complaint Female HPI - HPI Summary HPI Summary: PATIENT WITH 2 DAYS OF DYSURIA AND URINARY FREQUENCY. SAW HER [employer] YESTERDAY AND WAS PRESCRIBED MACROBID. TOOK ONE DOSE THIS MORNING BUT TODAY NOTED LOWER ABDOMINAL PAIN AND RIGHT FLANK PAIN WELL NAUSEA. CAME HERE FOR REEVALUATION DUE TO WORSENING SYMPTOMS. - History Of Current Complaint Chief Complaint: UCGU Stated Complaint: LOWER BACK PAIN Time Seen by Provider: 08/10/18 09:11 Hx Obtained From: Patient, Family/Project Management - Hx Last Menstrual Period: 07/16/18 Onset/Duration: Gradual Onset, Lasting Days, Still Present Timing: Constant Severity Initially: Moderate Severity Currently: Moderate Pain Intensity: 8 Pain Scale Used: 0-10 Numeric Character: Sharp, Burning Aggravating Factor(s): Nothing Alleviating Factor(s): Nothing Associated Signs And Symptoms: Positive: Back Pain, Nausea. Negative: Fever - Allergies/Home Medications Allergies/Adverse Reactions: Allergies Allergy/AdvReac Type Severity Reaction Status Date / Time No Known Allergies Allergy Verified 08/10/18 09:16 Home Medications: Home Medications Nitrofurantoin Macrocrystals* [Macrodantin 100 mg*] 100 mg PO BID 08/10/18 [ History Confirmed 08/10/18] PMH/Surg Hx/FS Hx/Imm Hx Previously Healthy: Yes - Surgical History Surgical History: Yes Surgery Procedure, Year, and Place: appendectomy - Family History Known Family History: Positive: Diabetes, Other - multiple myeloma, KIDNEY STONES (DAD) - Social History Alcohol Use: None Substance Use Type: None Smoking Status (MU): Never Smoked Tobacco - Immunization History Most Recent Influenza Vaccination: 2017 Most Recent Pneumonia Vaccination: never Review of Systems All Other Systems Reviewed And Are Negative: Yes Constitutional: Positive: Negative Respiratory: Positive: Negative Cardiovascular: Positive: Negative Gastrointestinal: Positive: Abdominal Pain, Nausea Genitourinary: Positive: Dysuria, Frequency, Urgency, Other - RIGHT FLANK PAIN Physical Exam Triage Information Reviewed: Yes Appearance: Well-Nourished, Pain Distress - MODERATE Vital Signs: Initial Vital Signs Temp 99.3 F 08/10/18 09:17 Pulse 94 08/10/18 09:17 Resp 16 08/10/18 09:17 BP 107/76 08/10/18 09:17 Pulse Ox 99 08/10/18 09:17 Vital Signs Reviewed: Yes Eyes: Positive: Conjunctiva Clear ENT: Positive: Hearing grossly normal Neck: Positive: Supple, Nontender, No Lymphadenopathy Respiratory Exam: Normal Cardiovascular Exam: Normal Abdomen Description: Positive: Soft, CVA Tenderness (R). Negative: CVA Tenderness (L), Distended, Guarding Musculoskeletal: Positive: No Edema Neurological: Positive: Alert Psychological: Positive: Normal Response To Family, Age Appropriate Behavior Skin: Negative: Rashes Diagnostics - Radiology CT ABD/PELVIS W/O CONTRAST Radiology Interpretation Completed By: Radiologist Summary of Radiographic Findings: 1. Negative for urolithiasis or hydronephrosis. 2. Findings at the urinary bladder strongly favor acute cystitis. Complaint Female Dx - Differential Dx/Diagnosis Provider Diagnoses: UTI Discharge - Sign-Out/Discharge Documenting (check all that apply): Patient Departure All imaging exams completed and their final reports reviewed: Yes - Discharge Plan Condition: Stable Disposition: HOME Prescriptions: Ondansetron ODT TAB* [Zofran Odt TAB*] 4 mg PO Q6H PRN #20 tab.odt PRN Reason: Nausea/Vomiting Phenazopyridine TAB* [Pyridium TAB*] 200 mg PO TID #6 tab Patient Education Materials: Urinary Tract Infection in Women (ED) Referrals: No Primary Care Phys,NOPCP [Primary Care Provider] - Additional Instructions: CT SCAN TODAY SHOWED FINDINGS CONSISTENT WITH UTI. CONTINUE MACROBID TWICE DAILY PRESCRIBED. WE HAVE SENT YOUR URINE FOR CULTURE AND WILL CALL YOU IF YOUR TREATMENT NEEDS TO BE CHANGED. BE SURE TO STAY VERY WELL-HYDRATED. ZOFRAN NEEDED FOR NAUSEA. GO TO THE ED WITHOUT FAIL IF YOU DEVELOP INTOLERABLE PAIN, FEVER OR ANY OTHER CONCERNING SYMPTOMS. - Billing Disposition and Condition Condition: STABLE Disposition: Home
[2018-08-10 13:08] VITALS: BP 108/73
--- NOTE | 2018-08-12 14:36 | UC ---
- Progress Note Progress Note: Labs reviewed today Urine culture positive for Escherichia coli sensitive to nitrofurantoin Patient already on Macrobid No change in plan Discharge - Sign-Out/Discharge Documenting (check all that apply): Post-Discharge Follow Up All imaging exams completed and their final reports reviewed: Yes - Discharge Plan Condition: Stable Disposition: HOME Prescriptions: Ondansetron ODT TAB* [Zofran Odt TAB*] 4 mg PO Q6H PRN #20 tab.odt PRN Reason: Nausea/Vomiting Phenazopyridine TAB* [Pyridium TAB*] 200 mg PO TID #6 tab Patient Education Materials: Urinary Tract Infection in Women (ED) Referrals: No Primary Care Phys,NOPCP [Primary Care Provider] - Additional Instructions: CT SCAN TODAY SHOWED FINDINGS CONSISTENT WITH UTI. CONTINUE MACROBID TWICE DAILY PRESCRIBED. WE HAVE SENT YOUR URINE FOR CULTURE AND WILL CALL YOU IF YOUR TREATMENT NEEDS TO BE CHANGED. BE SURE TO STAY VERY WELL-HYDRATED. ZOFRAN NEEDED FOR NAUSEA. GO TO THE ED WITHOUT FAIL IF YOU DEVELOP INTOLERABLE PAIN, FEVER OR ANY OTHER CONCERNING SYMPTOMS. - Billing Disposition and Condition Condition: STABLE Disposition: Home
== END 2018-08-10 11:49 | disposition home or self-care (01) ==
LOC: UCEAST 09:00
DX: N39.0 Urinary tract infection, site not specified (principal)
CPT/HCPCS: 74176; 81003; 84702; 87077; 87086; 87186; 99212; A9270-GY; G0463

== ENCOUNTER → 2019-10-14 11:50 | Day surgery (SDC) | payer BC ==
[~2019-10-14 11:50] MED LIST: Buffered Lidocaine 1% SYRIN* 1 ML/SYRINGE INTRADERM ONE; Bupivacaine 0.25% SDV* 30 ML ONE; DiMENhydriNATE IV* 50 MG/ML VIAL IV PUSH PRN; DiMENhydriNATE IV* 50 MG/ML VIAL ONE; HYDROcodone/ACETAMIN 5-325 MG* 1 TAB PO PRN; HYDROmorphone INJ1* 1 MG/ML SYRINGE IV PRN; Lactated Ringers 1000 ML Bag* 1,000 ML IV SCH; Midazolam* 1 MG/ML 2 ML VIAL (2 MG) ONE; Naloxone* 0.4 MG/ML 1 ML VIAL IV PRN; Ondansetron INJ* 2 MG/ML VIAL ONE; Propofol* 10 MG/ML 20 ML BTL ONE; Silver Nitrate/Potassium Nitr* 1 PAK (1 PAK PER PATIENT) ONE; Silver Sulfadiazine 1%* 20 GM ONE; fentaNYL* 50 MCG/ML 2 ML VIAL (100 MCG VIAL) IV PRN; fentaNYL* 50 MCG/ML 2 ML VIAL (100 MCG VIAL) ONE
[2019-10-14 15:51] VITALS: BP 116/78
--- NOTE | 2019-10-28 05:02 | OP ---
DATE OF OPERATION: 10/14/19 - [facility] DATE OF : 85 SURGEON: Suzi Jean Baptiste MD ANESTHESIA: Monitored anesthesia care and local. PRE-OP DIAGNOSES: Abnormal uterine bleeding, endometrial polyp. POST-OP DIAGNOSES: Abnormal uterine bleeding, endometrial polyp. OPERATIVE PROCEDURE: Hysteroscopy, dilation and curettage, polypectomy. ESTIMATED BLOOD LOSS: Minimal. SPECIMEN: Endometrial polyp. FLUIDS: Crystalloid. FINDINGS: A polyp at the uterine fundus. DESCRIPTION OF PROCEDURE: After informed consent was signed, the patient was taken to the operating room where she was given monitored anesthesia care. She was prepped and draped in the dorsal lithotomy position and a time-out was performed. Her bladder was drained of urine. Then, a speculum was placed into the vagina to expose the cervix. The anterior lip of the cervix was grasped with a single-tooth tenaculum. The cervix was dilated until the MyoSure device could be inserted. A cervical block was then given with 0.25% Marcaine. The MyoSure device was then assembled and inserted through the cervix into the uterine cavity. A decent-sized endometrial polyp was noted towards the fundus of the uterus. The MyoSure device was used to remove the polyp until it was flush with the endometrium. The device was then removed. The tenaculum was removed from the cervix with good hemostasis. The speculum was removed from the vagina. The patient was placed back in the supine position, awaken from the anesthesia, and moved to the recovery room in stable condition. [id number]/CPS #: [id number] MTDD
== END | disposition home or self-care (01) ==
LOC: OR 11:50
PROVIDERS: ATTEND Obstetrics & Gynecology
DX: N93.8 Other specified abnormal uterine and vaginal bleeding (principal); N84.0 Polyp of corpus uteri; M54.5 Low back pain
CPT/HCPCS: 81025; 88305; A9270-GY; J1240; J2250; J2405; J2704; J3010; J3490